=== PATIENT | male | born 1990 | race Caucasian/White ===

== ENCOUNTER 2017-12-23 21:43 | Emergency (ER) | payer BC ==
[2017-12-23] MEDS ORDERED: ONDANSETRON DISINTEGRATING 4 MG TAB PO ONE (21:51)
[2017-12-23] MEDS ORDERED: NS 1,000 ML IV ONE ×2 (22:04→22:22)
[2017-12-23] MEDS ORDERED: ONDANSETRON 4 MG/2 ML VIAL IVP ONE (22:04)
--- NOTE | 2017-12-23 22:19 | EDPHY ---
H & P Stated Complaint: NAUSEA/ABD PAIN X 5 HOURS Source: Patient, Family Exam Limitations: No limitations - Personal History Current Tetanus/Diphtheria Vaccine: Yes Current Tetanus Diphtheria and Acellular Pertussis (TDAP): Yes - Medical/Surgical History Hx Asthma: No Hx Chronic Respiratory Disease: No Hx Diabetes: No Hx Cardiac Disease: No Hx Renal Disease: No Hx Cirrhosis: No Hx Alcoholism: No Hx HIV/AIDS: No Hx Splenectomy or Spleen Trauma: No Other PMH: HIATAL HERNIA - Family History Significant Family History: No pertinent family hx - Social History Smoking Status: Never smoked Alcohol Use: Occasionally Drug Use: Marijuana Time Seen by Provider: 12/23/17 22:01 HPI/ROS: 27 yo M presents with vomiting since 5pm.Pt has hx of hiatal hernia, and severe anxiety and has struggled with vomiting for 2 years, but the last two months since he started seeing a chiropracter for his hiatal hernia and has had no vomiting for about two months until this week. Review of systems as per [facility] General no fever no chills no weakness HEENT no eye pain no eye discharge. No eye redness, no sore throat Respiratory no cough, no shortness of breath Cardiac no chest pain, no peripheral edema GI no abdominal pain, no diarrhea, no constipation, no flank pain, no hematuria, no dysuria Musculoskeletal no myalgias, no joint pain Heme no easy bruising, no easy bleeding Endo no polyuria, no polydipsia Skin no rashes, no pruritus Neuro no syncope, no dizziness, no headaches Psych is no suicidal ideation, no homicidal ideation (Marah Perry) - Physical Exam Exam: 27-year-old male alert and oriented initially retching, shortly after iv fluids and zofran, no longer vomiting bradycardic 40-52 HEENT atraumatic normocephalic, extraocular muscles intact, anicteric Oropharynx negative for erythema negative exudate, tolerating her own secretions Neck supple no meningismus Lungs clear to auscultation bilaterally Heart slow reg rate and rhythm Abdomen nondistended normoactive bowel sounds soft nontender Back no CVA tenderness, no step-offs, no spinal tenderness Extremities no cyanosis clubbing or edema Neuro alert and oriented, no focal deficits (Marah Perry B) Constitutional: Initial Vital Signs Heart Rate 48 L 12/23/17 22:00 Respiratory Rate 16 06/23/18 22:00 Blood Pressure 126/62 H 12/23/17 22:00 O2 Sat (%) 100 12/23/17 22:00 O2 Delivery Mode Room Air Allergies/Adverse Reactions: acetaminophen Allergy (Intermediate, Verified 12/23/17 22:51) Abdominal Cramping banana Allergy (Intermediate, Verified 12/23/17 22:51) Vomiting ibuprofen Allergy (Intermediate, Verified 12/23/17 22:51) Abdominal Cramping Milk Containing Products [dairy] Allergy (Intermediate, Verified 12/23/17 22:51) Abdominal Cramping Home Medications: Medication Instructions Recorded Prilosec 12/23/17 Prozac 10 MG (*) 12/23/17 Ranitidine HCl 12/23/17 Xanax 12/23/17 Ondansetron [Zofran Odt] 4 - 8 mg PO Q8 #4 tab.rapdis 12/24/17 Medical Decision Making ED Course/Re-evaluation: pt seen for vomiting iv fluids started, given ondansetron, and haldol labs sent lactate 2.6 k 3.0 Imp cylcic vomiting severe dehydration r/o pancreatitis plan continue hydration re-evaluate abdomen and lactate after fluids formal CBC, lipase pending (Marah Perry) Differential Diagnosis: Differential diagnosis considered but not limited to: Pancreatitis, cholecystitis, appendicitis, gastritis, cyclic vomiting, a vomiting secondary to hiatal hernia, vomiting secondary to food reaction Anxiety (Marah Perry) Other Provider: Care assumed at change of shift, 2300 hr Case discussed with Dr. Steven PRADO, chart reviewed, nurse's notes reviewed, patient interviewed and examined. This is a 27-year-old male whose had approximately 2 years of nausea. Back some 2 years ago of 1st presented who was it typically a morning experience where he would fell nausea followed by vomiting with resolution of any distress. Ultimately was seen by PCP who referred to Gastroenterology and has scope procedure was performed in [place] this past July. Evidently it was found that he had a hiatal hernia and subsequently he underwent ultrasound of the gallbladder which was negative. There was no clear connection with his underlying symptomatology with the hilar hernia although is suspected. Off and on over the course last few years he has treated himself with Prilosec, the longest duration being some 3 weeks. He did notice that is middle school and high school years he trim down by some 50 lb as he was growing up because beforehand he was quite obese. Most recently last 2-3 weeks has been a rough go for him. He is having daily morning nausea with some vomiting. Of note, is that he uses marijuana approximately 3 times daily. He has had been discussed by his rehab care assistant of the providers in the past of cyclic vomiting might have a role in things as well. Nonetheless he continues to smoke marijuana. He does not have a history of water brash. Nor does have a history of chronic cough. He has not noticed any blood in stool. There is some dark flecks in some of the emesis but no clinton hematemesis nor bilious material. Earlier today did have some a liquid brown stools but no blood or green. Travel: None Others: None Antibiotics: None Bad Food: None Bad Water: None Recent Surgery: None No prior abdominal surgery. He does not drink alcohol. He does not take caffeine or nicotine in significant quantities. He has yet to the forego eating 3 hr before sleep. Earlier today he had some nausea. He does not have any of the nausea medicine he has had in the past. He took a nap this afternoon in then when he woke up around 5 he had a particularly severe episode of crampy type abdominal stress in the hypogastrium that did not radiate to the back that was waxing and waning coming on in waves and was particularly severe, the worst she has ever had. At the peaks of the waves the pain he did have the urge and need to have emesis. Pain itself is located in the hypogastrium, does not radiate into the chest or lower abdomen or back. It is steady nonetheless but comes on in waves in terms of peaks and valleys. Is severe and feels crampy. He was too sick to take anything for the pain. He did not try any Pepto-Bismol. Earlier in the day, he had taken some Prilosec as he has been having worsening symptoms the last 4- 5 days. He has no other medications at home. Patient examined after feeling marked improvement with the L of normal saline as well as Zofran IV. As his lactic acid was elevated at 2.7, he underwent a 2nd L of IV fluids: General Appearance: Alert, no distress. Afebrile. Normal phonation. No respiratory distress. At times he would belch and almost half hiccups Eyes: Pupils equal and round no pallor or injection. No icterus ENT, Mouth: Mucous membranes slightly dry Pharynx without erythema or exudate. TM Clear. Neck: No adenopathy. Supple. No JVD. Trachea in midline. Respiratory: There are no retractions, lungs are clear to auscultation. Chest wall: Nontender to palpation. No crepitus. Cardiovascular: Regular rate and rhythm. Abdomen: Soft, mild tenderness in the hypogastrium. No masses, bowel sounds normal. Neurological: Ox3. No motor weakness. Sensation intact. Gait nl. Skin: Warm and dry, no rashes. Musculoskeletal: No joint swelling. Extremities: No edema. Homans sign negative. No cords. Psychiatric: Normal affect. Patient is oriented X 3. There is no agitation Summary: His clinical course was markedly improved by the time I saw the patient. Of note the following labs: Normal sodium with the low potassium of 3.0 = reflective of his vomiting gastric contents Normal renal function Normal H&H We had a lengthy discussion of means to improve his underlying condition and his dehydration. -Zofran for nausea -aggressive fluids hydration at home -initiating Prilosec on a fasting state for the next 2-3 weeks -reduce marijuana use -nothing to eat three hours before bed. Return precautions were provided. (Dante Gutiérrez) Care Turn Over: Patient care turned over to Dr. Gutiérrez at shift change, at 2300. (Marah Perry) - Data Points Laboratory Results: Laboratory Results 12/23/17 22:00 12/23/17 12/23/17 12/23/17 23:40 22:21 22:20 WBC RBC Hgb Hct MCV MCH MCHC RDW Plt Count MPV Neut % (Auto) Lymph % (Auto) [place] % (Auto) Eos % (Auto) Baso % (Auto) Nucleat RBC Rel Count Absolute Neuts (auto) Absolute Lymphs (auto) Absolute Monos (auto) Absolute Eos (auto) Absolute Basos (auto) Absolute Nucleated RBC Immature Gran % Immature Gran # POC Sodium 137 mEq/L mEq/L (135-145) POC Potassium 3.0 mEq/L L mEq/L (3.3-5.0) POC Chloride 103.0 mEq/L mEq/L (97-110) POC Total CO2 21 mEq/L L mEq/L (22-31) POC BUN 11 mg/dL mg/dL (7-23) POC Creatinine 0.9 mg/dL mg/dL (0.7-1.3) POC Glucose 118 mg/dL H mg/dL (70-100) POC Lactic Acid Brandon 0.9 mmol/L D mmol/L 2.6 mmol/L H mmol/L (0.7-2.1) (0.7-2.1) POC Calcium 9.8 mg/dL mg/dL (8.5-10.4) POC Total Bilirubin 1.5 mg/dL H mg/dL (0.1-1.4) POC AST 33 IU/L IU/L (17-59) POC ALT 25 IU/L IU/L (21-72) POC Alk Phosphatase 51 IU/L IU/L (38-126) POC Total Protein 7.2 g/dL g/dL (6.3-8.2) POC Albumin 5.2 g/dL H g/dL (3.5-5.0) Lipase 12/23/17 12/23/17 22:00 22:00 WBC 6.97 10^3/uL 10^3/uL (3.80-9.50) RBC 5.29 10^6/uL 10^6/uL (4.40-6.38) Hgb 16.7 g/dL g/dL (13.7-17.5) Hct 45.9 % % (40.0-51.0) MCV 86.8 fL fL (81.5-99.8) MCH 31.6 pg pg (27.9-34.1) MCHC 36.4 g/dL g/dL (32.4-36.7) RDW 11.4 % L % (11.5-15.2) Plt Count 314 10^3/uL 10^3/uL (150-400) MPV 10.3 fL fL (8.7-11.7) Neut % (Auto) 73.9 % % (39.3-74.2) Lymph % (Auto) 17.8 % % (15.0-45.0) [place] % (Auto) 7.6 % % (4.5-13.0) Eos % (Auto) 0.3 % L % (0.6-7.6) Baso % (Auto) 0.3 % % (0.3-1.7) Nucleat RBC Rel Count 0.0 % % (0.0-0.2) Absolute Neuts (auto) 5.15 10^3/uL 10^3/uL (1.70-6.50) Absolute Lymphs (auto) 1.24 10^3/uL 10^3/uL (1.00-3.00) Absolute Monos (auto) 0.53 10^3/uL 10^3/uL (0.30-0.80) Absolute Eos (auto) 0.02 10^3/uL L 10^3/uL (0.03-0.40) Absolute Basos (auto) 0.02 10^3/uL 10^3/uL (0.02-0.10) Absolute Nucleated RBC 0.00 10^3/uL 10^3/uL (0-0.01) Immature Gran % 0.1 % % (0.0-1.1) Immature Gran # 0.01 10^3/uL 10^3/uL (0.00-0.10) POC Sodium POC Potassium POC Chloride POC Total CO2 POC BUN POC Creatinine POC Glucose POC Lactic Acid Brandon POC Calcium POC Total Bilirubin POC AST POC ALT POC Alk Phosphatase POC Total Protein POC Albumin Lipase 58 IU/L IU/L (23-300) Medications Given: Discontinued Medications Haloperidol Lactate (Haldol Injection) 2.5 mg IVP EDNOW ONE Stop: 12/23/17 22:23 Last Admin: 12/23/17 22:26 Dose: 2.5 mg Sodium Chloride (Ns) 1,000 mls @ 0 mls/hr IV EDNOW ONE; Wide Open PRN Reason: Protocol Stop: 12/23/17 22:05 Last Admin: 12/23/17 22:08 Dose: 1,000 mls Sodium Chloride (Ns) 1,000 mls @ 0 mls/hr IV ONCE ONE PRN Reason: Wide Open Stop: 12/23/17 22:23 Last Admin: 12/23/17 22:29 Dose: 1,000 mls Ondansetron HCl (Zofran Odt) 4 mg PO EDNOW ONE Stop: 12/23/17 21:52 Last Admin: 12/23/17 21:54 Dose: 4 mg Ondansetron HCl (Zofran) 4 mg IVP EDNOW ONE Stop: 12/23/17 22:05 Last Admin: 12/23/17 22:08 Dose: 4 mg Ondansetron HCl (Zofran Odt 4 Mg Prepack#2) 1 btl TAKEHOME EDNOW ONE Stop: 12/24/17 00:23 Last Admin: 12/24/17 00:34 Dose: 1 btl Point of Care Test Results: Chemistry 12/23/17 22:20 POC Sodium 137 mEq/L mEq/L (135-145) POC Potassium 3.0 mEq/L L mEq/L (3.3-5.0) POC Chloride 103.0 mEq/L mEq/L (97-110) POC Total CO2 21 mEq/L L mEq/L (22-31) POC BUN 11 mg/dL mg/dL (7-23) POC Creatinine 0.9 mg/dL mg/dL (0.7-1.3) POC Glucose 118 mg/dL H mg/dL (70-100) POC Calcium 9.8 mg/dL mg/dL (8.5-10.4) POC Total Bilirubin 1.5 mg/dL H mg/dL (0.1-1.4) POC AST 33 IU/L IU/L (17-59) POC ALT 25 IU/L IU/L (21-72) POC Alk Phosphatase 51 IU/L IU/L (38-126) POC Total Protein 7.2 g/dL g/dL (6.3-8.2) POC Albumin 5.2 g/dL H g/dL (3.5-5.0) Blood Gas/Lactic Acid-Venous 12/23/17 12/23/17 23:40 22:21 POC Lactic Acid Brandon 0.9 mmol/L D mmol/L 2.6 mmol/L H mmol/L (0.7-2.1) (0.7-2.1) Departure - Departure Disposition: Home, Routine, Self-Care Clinical Impression: Reflux esophagitis Abdominal pain Qualifiers: Abdominal location: upper abdomen, unspecified Qualified Code(s): R10.10 - Upper abdominal pain, unspecified Cyclic vomiting syndrome Qualifiers: Vomiting Intractability: non-intractable Nausea presence: with nausea Qualified Code(s): G43.A0 - Cyclical vomiting, not intractable Condition: Good Instructions: Ondansetron (By mouth), Hiatal Hernia (ED), Dehydration (ED), Acute Abdominal Pain (DC) Additional Instructions: Prilosec or Prevacid (Lansoparazole) = OTC - take on an empty stomach - for 3 weeks, once daily nothing to eat 3 hr for bed Clarence for nausea. In the morning, start taking fluids 2-3 oz every 10 min. This should be a combination of water or Gatorade. Try to avoid juices. Advance her diet to the day tomorrow over the ensuing 24 hr Return if fever, more abdominal pain, lower abdominal pain, back pain, or feeling faint. Referrals: NONE *PRIMARY CARE P,. [Unknown] - As per Instructions Stand Alone Forms: Work Excuse Prescriptions: Ondansetron [Zofran Odt] 4 - 8 mg PO Q8 #4 tabzachary
[2017-12-23] MEDS ORDERED: HALOPERIDOL LACT 5 MG/ML INJ IVP ONE (22:22)
[2017-12-23 23:21] LABS: PLATELET COUNT 314 10^3/uL (150-400)
[2017-12-24] MEDS ORDERED: ONDANSETRON 4MG PREPACK#2 BTL TAKEHOME ONE (00:22)
[2017-12-24 00:45] VITALS: BP 107/64
== END 2017-12-24 00:44 | disposition home or self-care (01) ==
LOC: CED 21:43
DX: K21.0 Gastro-esophageal reflux disease with esophagitis (principal); G43.A0 Cyclical vomiting, in migraine, not intractable; E86.9 Volume depletion, unspecified
CPT/HCPCS: 80053-PO; 83605-PO; 96374; J1630; J2405